=== PATIENT | female | born 1955 | race Caucasian/White ===

== ENCOUNTER 2018-06-05 05:05 | Emergency (ER) | payer MEDICARE, MEDICAID ==
[~2018-06-05] VITALS: Ht 170.2 cm; Wt 111.0 kg
[~2018-06-05 05:05] MED LIST: ALBU8.5H8 IH; ASPI-1265 PO; AZIT250T PO; FLO110IN IH; HYDR-569 PO; LEVO50TA67 PO; MECL12.584 PO; METF500T PO; NITR100C6 PO; PANT40TA39 PO; PHEN-873 PO; UBID100C16 PO; VAL5T PO; VALS1TAB37 PO
[2018-06-05 05:08] VITALS: BP 193/86
[2018-06-05] MEDS ORDERED: FLUT16SP2 BOTHNARES (05:17)
== END 2018-06-05 05:22 | disposition home or self-care (01) ==
LOC: ER 05:05
DX: J32.9 Chronic sinusitis, unspecified (principal); I49.9 Cardiac arrhythmia, unspecified; E78.00 Pure hypercholesterolemia, unspecified; I10 Essential (primary) hypertension; E11.9 Type 2 diabetes mellitus without complications; Z87.442 Personal history of urinary calculi; Z90.710 Acquired absence of both cervix and uterus; Z98.890 Other specified postprocedural states; Z56.0 Unemployment, unspecified; Z88.0 Allergy status to penicillin; Z88.2 Allergy status to sulfonamides; Z88.8 Allergy status to other drugs, medicaments and biological substances; Z79.82 Long term (current) use of aspirin; Z79.84 Long term (current) use of oral hypoglycemic drugs; Z79.899 Other long term (current) drug therapy
CPT/HCPCS: 99283

== ENCOUNTER 2019-02-10 21:04 | Observation (INO) | payer MEDICARE, MEDICAID ==
[~2019-02-10] VITALS: Ht 170.2 cm; Wt 121.0 kg
[~2019-02-10 21:04] MED LIST changes: +FLUT16SP2 BOTHNARES; +HYDR-4383 PO; -HYDR-569 PO; +PHEN-786 PO; -PHEN-873 PO
[2019-02-10] MEDS ORDERED: aspirin 81mg tab.chew PO ONE (21:30)
[2019-02-10] MEDS ORDERED: LOSA1TAB39 PO (21:59)
[2019-02-10] MEDS ORDERED: ROSU20TA2 PO (22:01)
[2019-02-10] MEDS ORDERED: LORA0.5T PO (22:01)
[2019-02-10] MEDS: nitroGLYCERIN 0.4mg SUBLingual tab SL PRN ×2 (22:06→22:17)
--- NOTE | 2019-02-10 22:17 | NUR ---
B NOW 53/78, AFTER 1 NITRO. PT REPORTS SHE DID TAKE HER BP MEDS TODAY. PT'S GIRLFRIEND , LUCÍA AT BEDSIDE (CELL [phone]) AND SHE IS HOPEFUL OF STAYING WITH PT TONIGHT. SHE IS APPROPRIATE AND POLITE AND SUPPORTIVE. PT IS IN GOOD SPIRITS AND IS AGREEABLE TO ADMISSION FOR CARDIAC WORKUP.
[2019-02-10 22:24] LABS: ALANINE AMINOTRANSFERASE 37 U/L (12-78); ALBUMIN 3.7 G/DL (3.4-5.0); ALKALINE PHOSPHATASE 97 IU/L (46-116); ANION GAP 14 (8-16); ASPARTATE AMINO TRANSFERASE 21 U/L (10-37); BILIRUBIN,TOTAL 0.3 MG/DL (0.1-1.0); BLOOD UREA NITROGEN 21 MG/DL (7-18); BUN/CREATININE RATIO 19.3 (6.6-38.0); CALCIUM 9.6 MG/DL (8.5-10.1); CHLORIDE 102 MMOL/L (99-107); CREATININE 1.09 MG/DL (0.40-0.90); GLUCOSE 339 MG/DL (70-104); MAGNESIUM 1.5 MG/DL (1.5-2.4); POTASSIUM 3.8 MMOL/L (3.5-5.1); SODIUM 139 MMOL/L (135-145); TOTAL CARBON DIOXIDE 23.1 MMOL/L (24-32); TOTAL PROTEIN 7.4 G/DL (6.4-8.2); eGFR 51 ML/MIN
[2019-02-10 22:26] LABS: BASOPHILS # (AUTO) 0.1 X10'3 (0-0.2); BASOPHILS % (AUTO) 1.1 % (0-1); EOSINOPHILS # (AUTO) 0.2 X10'3 (0-0.9); EOSINOPHILS % (AUTO) 3.8 % (0-6); HEMATOCRIT 37.1 % (35.0-45.0); HEMOGLOBIN 11.9 g/dl (12.0-16.0); LYMPHOCYTES # (AUTO) 1.5 X10'3 (1.1-4.8); LYMPHOCYTES % (AUTO) 22.6 % (21-51); MEAN CORPUSCULAR HEMOGLOBIN 26.9 PG (27.0-31.0); MEAN CORPUSCULAR HGB CONC 32.1 g/dL (33.0-36.5); MEAN CORPUSCULAR VOLUME 83.7 FL (78-98); MEAN PLATELET VOLUME 8.8 FL (7.4-10.4); MONOCYTES # (AUTO) 0.5 X10'3 (0-0.9); MONOCYTES % (AUTO) 8.3 % (2-12); NEUTROPHILS # (AUTO) 4.2 X10'3 (1.8-7.7); NEUTROPHILS % (AUTO) 64.2 % (42-75); PLATELET COUNT 228 X10'3 (140-440); RED BLOOD COUNT 4.43 X10'6 (4.20-5.60); RED CELL DISTRIBUTION WIDTH 14.5 % (11.5-14.5); WHITE BLOOD COUNT 6.5 X10'3 (4.5-11.0)
[2019-02-10 22:40] LABS: PARTIAL THROMBOPLASTIN TIME 26 SECONDS (22-32); PROTHROMBIN TIME 10.2 SECONDS (9.0-12.0)
[2019-02-10] MEDS ORDERED: HYDROcodone/acetaminophen 5mg/325mg tablet PO PRN (23:00)
[2019-02-10] MEDS ORDERED: morphine 4 MG/ML inj SYRINge IV PRN (23:00)
[2019-02-10] MEDS ORDERED: mag hydrox/Alum hydrox/simeth 30ml oral suspension PO PRN (23:00)
[2019-02-10] MEDS ORDERED: magnesium hydroxide 30ml (MOM) UD suspension PO PRN (23:00)
[2019-02-10] MEDS ORDERED: morphine 2 MG/ML inj. syringe IV PRN (23:00)
[2019-02-10] MEDS ORDERED: acetaminophen 325mg tablet PO PRN (23:00)
[2019-02-10] MEDS ORDERED: ondansetron/PF 4mg/2ml inj IV PRN (23:00)
[2019-02-10] MEDS ORDERED: LORazepam 0.5 MG tablet PO PRN (23:10)
--- NOTE | 2019-02-10 23:11 | NUR ---
ADMISSION ORDERS WRITTEN BY DR. GAYTAN. PT AWAITING IPA. MEDICAL LEVEL. CURRENT VSS.
--- NOTE | 2019-02-10 23:30 | NUR ---
IPA 354C. PT'S PARTNER, LUCÍA, HAS JUST STEPPED AWAY AND WILL RETURNE IN A WHILE. CURRENT VSS. PT REPORTS NO PAIN AND STATES "I FEEL GREAT.
[2019-02-10 23:40] LABS: HEMOGLOBIN A1C 8.6 % (4.5-6.2)
[2019-02-11] VITALS (9 sets, daily range): BP systolic 135–186; BP diastolic 47–88
--- NOTE | 2019-02-11 00:08 | NUR ---
Patient in room ED 2. I have received report from LEYLA Brady and had the opportunity to ask questions and assume patient care.Patient just arrived
[2019-02-11] MEDS: furosemide 10 MG/1 ML 10ml inj IV SCH ×2 (00:26→12:03)
[2019-02-11] MEDS ORDERED: nitroGLYCERIN 0.4mg SUBLingual tab SL PRN (01:50)
[2019-02-11] MEDS ORDERED: aminophylline 250mg/10ml inj. IV PRN (01:50)
[2019-02-11] MEDS ORDERED: metoprolol tartrate 1mg/ml inj IV PRN (01:50)
[2019-02-11] MEDS ORDERED: regadenoson 0.4mg/5ml syringe IV ONE ×2 (01:50→10:25)
[2019-02-11 04:36] LABS: BASOPHILS # (AUTO) 0.1 X10'3 (0-0.2); BASOPHILS % (AUTO) 1.5 % (0-1); EOSINOPHILS # (AUTO) 0.2 X10'3 (0-0.9); EOSINOPHILS % (AUTO) 3.6 % (0-6); HEMOGLOBIN 12.3 g/dl (12.0-16.0); LYMPHOCYTES # (AUTO) 2.1 X10'3 (1.1-4.8); LYMPHOCYTES % (AUTO) 31.2 % (21-51); MEAN CORPUSCULAR HEMOGLOBIN 26.7 PG (27.0-31.0); MEAN CORPUSCULAR HGB CONC 32.3 g/dL (33.0-36.5); MEAN CORPUSCULAR VOLUME 82.6 FL (78-98); MEAN PLATELET VOLUME 8.7 FL (7.4-10.4); MONOCYTES # (AUTO) 0.6 X10'3 (0-0.9); MONOCYTES % (AUTO) 8.4 % (2-12); NEUTROPHILS # (AUTO) 3.8 X10'3 (1.8-7.7); NEUTROPHILS % (AUTO) 55.3 % (42-75); PLATELET COUNT 234 X10'3 (140-440); RED CELL DISTRIBUTION WIDTH 14.3 % (11.5-14.5); WHITE BLOOD COUNT 6.8 X10'3 (4.5-11.0)
[2019-02-11 04:44] LABS: ALBUMIN 3.7 G/DL (3.4-5.0); ANION GAP 11 (8-16); BLOOD UREA NITROGEN 21 MG/DL (7-18); BUN/CREATININE RATIO 22.8 (6.6-38.0); CALCIUM 9.8 MG/DL (8.5-10.1); CHLORIDE 102 MMOL/L (99-107); CREATININE 0.92 MG/DL (0.40-0.90); GLUCOSE 187 MG/DL (70-104); POTASSIUM 3.3 MMOL/L (3.5-5.1); SODIUM 140 MMOL/L (135-145); TOTAL CARBON DIOXIDE 27.3 MMOL/L (24-32); eGFR 62 ML/MIN
[2019-02-11] MEDS ORDERED: potassium Cl 20 mEq SR tablet PO PRN ×2 (05:45)
[2019-02-11] MEDS ORDERED: magnesium 4gm in 100ml NS 100 ML IV PRN (05:45)
[2019-02-11] MEDS ORDERED: potassium Cl 40MEQ/NS 500ml 500 ML IV PRN ×2 (05:45)
[2019-02-11] MEDS ORDERED: magnesium 2GM in 50ml NS 50 ML IV PRN (05:45)
[2019-02-11] MEDS ORDERED: magnesium Cl slow-release 64mg tablet PO PRN (05:45)
--- NOTE | 2019-02-11 06:27 | NUR ---
Problems reprioritized. Patient report given, questions answered & plan of care reviewed with LEYLA PAULA.
[2019-02-11] MEDS ORDERED: levoTHYROXINE 75mcg tablet PO SCH (07:00)
[2019-02-11] MEDS ORDERED: metFORMIN 500mg tablet PO SCH (07:00)
[2019-02-11] MEDS ORDERED: non-formulary drug (Ubidecarenone (Coq-10) 300 MG) PO SCH (08:00)
[2019-02-11] MEDS ORDERED: fluticasone nasal spray 16GM bottle NS SCH (08:00)
[2019-02-11] MEDS ORDERED: pantoprazole 40mg Tablet.DR PO SCH (08:00)
[2019-02-11] MEDS ORDERED: losartan 50mg tablet PO SCH (08:00)
[2019-02-11] MEDS ORDERED: HYDROchlorothiazide 25mg tablet PO SCH (08:00)
[2019-02-11] MEDS ORDERED: atorvastatin 20mg tablet PO SCH (08:00)
[2019-02-11] MEDS ORDERED: enoxaparin 40mg/0.4ml syringe SUBCUT SCH (08:00)
[2019-02-11] MEDS ORDERED: non-formulary drug (Losartan/Hydrochlorothiazide (Losartan-Hctz 100-25 Mg Tab) 1 TAB) PO SCH (08:00)
[2019-02-11] MEDS ORDERED: aspirin 81mg tab.chew PO SCH (08:00)
[2019-02-11] MEDS ORDERED: aminophylline inj. 10 ML IV ONE (10:25)
== END 2019-02-11 15:45 | disposition home or self-care (01) ==
LOC: ER 21:05 → ED HOLD 23:00 → UNDOADMIN 23:00 → ED HOLD 23:00 → SUR 3N 23:59
PROVIDERS: ADMIT Internal Medicine; ATTEND Family Medicine
DX: R07.89 Other chest pain (principal); R00.2 Palpitations; G47.30 Sleep apnea, unspecified; E03.9 Hypothyroidism, unspecified; E78.5 Hyperlipidemia, unspecified; I10 Essential (primary) hypertension; E11.9 Type 2 diabetes mellitus without complications; E78.00 Pure hypercholesterolemia, unspecified; Z87.891 Personal history of nicotine dependence; Z87.442 Personal history of urinary calculi; Z87.11 Personal history of peptic ulcer disease; N39.0 Urinary tract infection, site not specified; F41.9 Anxiety disorder, unspecified; Z90.710 Acquired absence of both cervix and uterus; Z82.3 Family history of stroke; Z82.49 Family history of ischemic heart disease and other diseases of the circulatory system; Z96.659 Presence of unspecified artificial knee joint
CPT/HCPCS: 36415; 71045; 78452; 80048; 80053; 82948; 83036; 83735; 83880; 84484; 85025; 85610; 85730; 87070; 93005; 93017; 93306; 96372; 96374; 96376; 99284; A9500; G0378; J0280; J1940; J1650

== ENCOUNTER 2019-12-19 09:52 | Emergency (ER) | payer MEDICARE, MEDICAID ==
[~2019-12-19] VITALS: Ht 170.2 cm; Wt 120.5 kg
[~2019-12-19 09:52] MED LIST changes: -ALBU8.5H8 IH; -AZIT250T PO; +CLIN150C8 PO; -FLO110IN IH; -HYDR-4383 PO; +LORA0.5T PO; +LOSA1TAB39 PO; -MECL12.584 PO; +METO50TA17 PO; -NITR100C6 PO; -PHEN-786 PO; +ROSU20TA2 PO; -VAL5T PO; -VALS1TAB37 PO
[2019-12-19] MEDS ORDERED: oxymetazoline 15 ML nasal spray NS ONE (10:55)
[2019-12-19] MEDS ORDERED: normal saline 1000ML IV soln IVB ONE (10:55)
[2019-12-19] MEDS ORDERED: metoclopramide 5 mg/ml inj IV ONE (10:55)
[2019-12-19 11:08] LABS: BASOPHILS # (AUTO) 0.1 X10'3 (0-0.2); BASOPHILS % (AUTO) 1.3 % (0-1); EOSINOPHILS # (AUTO) 0.3 X10'3 (0-0.9); HEMATOCRIT 36.6 % (35.0-45.0); LYMPHOCYTES # (AUTO) 1.3 X10'3 (1.1-4.8); LYMPHOCYTES % (AUTO) 24.2 % (21-51); MEAN CORPUSCULAR HEMOGLOBIN 26.3 PG (27.0-31.0); MEAN CORPUSCULAR HGB CONC 32.8 g/dL (33.0-36.5); MEAN CORPUSCULAR VOLUME 80.3 FL (78-98); MEAN PLATELET VOLUME 8.7 FL (7.4-10.4); MONOCYTES # (AUTO) 0.3 X10'3 (0-0.9); NEUTROPHILS # (AUTO) 3.5 X10'3 (1.8-7.7); NEUTROPHILS % (AUTO) 63.5 % (42-75); PLATELET COUNT 228 X10'3 (140-440); RED BLOOD COUNT 4.56 X10'6 (4.20-5.60); RED CELL DISTRIBUTION WIDTH 13.8 % (11.5-14.5); WHITE BLOOD COUNT 5.6 X10'3 (4.5-11.0)
[2019-12-19 11:16] LABS: ALANINE AMINOTRANSFERASE 44 U/L (12-78); ALBUMIN 3.6 G/DL (3.4-5.0); ALBUMIN/GLOBULIN RATIO 0.9 (1.1-1.5); ALKALINE PHOSPHATASE 101 IU/L (46-116); AMYLASE 36 U/L (25-115); ANION GAP 10 (8-16); ASPARTATE AMINO TRANSFERASE 30 U/L (10-37); BILIRUBIN,TOTAL 0.4 MG/DL (0.1-1.0); BLOOD UREA NITROGEN 17 MG/DL (7-18); BUN/CREATININE RATIO 20.5 (6.6-38.0); CALCIUM 8.9 MG/DL (8.5-10.1); CHLORIDE 101 MMOL/L (99-107); CREATININE 0.83 MG/DL (0.40-0.90); GLUCOSE 217 MG/DL (70-104); LIPASE 264 U/L (73-393); POTASSIUM 3.7 MMOL/L (3.5-5.1); SODIUM 138 MMOL/L (135-145); TOTAL CARBON DIOXIDE 26.9 MMOL/L (24-32); TOTAL PROTEIN 7.5 G/DL (6.4-8.2); eGFR 69 ML/MIN
[2019-12-19 12:22] LABS: CLARITY,URINE CLEAR (Clear); COLOR,URINE STRAW (Yellow); GLUCOSE, URINE NEGATIVE (Neg); KETONES,URINE TRACE mg/dl (Neg); LEUKOCYTE ESTERASE ,URINE NEGATIVE (Neg); NITRITES, URINE NEGATIVE (Neg); OCCULT BLOOD,URINE NEGATIVE (Neg); PROTEIN,URINE 100 mg/dl (Neg); UROBILINOGEN,URINE 0.2 E.U/dL (0.2-1.0)
[2019-12-19 12:23] LABS: UA COLLECTION TYPE CLN CATCH MIDSTREAM
[2019-12-19 12:27] LABS: RBC,URINE NONE SEEN /HPF (0-2); WBC,URINE 0-4 /HPF (0-4)
[2019-12-19 12:28] LABS: BACTERIA,URINE 1+ /HPF (Neg); COARSE GRANULAR CAST 0-3 /LPF (NEGATIVE); HYALINE CASTS 0-3 /LPF (NEGATIVE); MUCUS STRANDS FEW /LPF (Neg); SQUAMOUS EPITHELIAL CELL,UR MANY /LPF (FEW)
[2019-12-19 14:30] VITALS: BP 164/75
[2019-12-19] MEDS ORDERED: ONDA4TAB6 PO (14:42)
== END 2019-12-19 15:04 | disposition home or self-care (01) ==
LOC: ER 09:53
DX: E87.2 Acidosis (principal); R19.7 Diarrhea, unspecified; R05 Cough; E78.00 Pure hypercholesterolemia, unspecified; I10 Essential (primary) hypertension; E11.9 Type 2 diabetes mellitus without complications; Z87.442 Personal history of urinary calculi; F41.9 Anxiety disorder, unspecified; Z90.710 Acquired absence of both cervix and uterus; Z98.890 Other specified postprocedural states; Z56.0 Unemployment, unspecified; Z88.0 Allergy status to penicillin; Z88.1 Allergy status to other antibiotic agents; Z88.2 Allergy status to sulfonamides; Z79.82 Long term (current) use of aspirin; Z79.84 Long term (current) use of oral hypoglycemic drugs; Z79.899 Other long term (current) drug therapy
CPT/HCPCS: 36415; 71046; 80053; 81001; 82150; 83605; 83690; 84484; 85025; 93005; 96361; 96374; 99284; J2765; J7030

== ENCOUNTER 2021-05-01 00:55 | Observation (INO) | payer MEDICARE, MEDICAID ==
[2021-05-01] VITALS (11 sets, daily range): BP systolic 153–191; BP diastolic 64–82
[~2021-05-01] VITALS: Ht 170.2 cm; Wt 120.5 kg
[~2021-05-01 00:55] MED LIST changes: +ONDA4TAB6 PO
[2021-05-01 01:54] LABS: BASOPHILS # (AUTO) 0.1 X10'3 (0-0.2); BASOPHILS % (AUTO) 1.1 % (0-1); EOSINOPHILS # (AUTO) 0.1 X10'3 (0-0.9); EOSINOPHILS % (AUTO) 2.9 % (0-6); HEMATOCRIT 45.2 % (35.0-45.0); HEMOGLOBIN 15.1 g/dl (12.0-16.0); LYMPHOCYTES # (AUTO) 1.6 X10'3 (1.1-4.8); LYMPHOCYTES % (AUTO) 32.3 % (21-51); MEAN CORPUSCULAR HGB CONC 33.5 g/dL (33.0-36.5); MEAN CORPUSCULAR VOLUME 86.6 FL (78-98); MEAN PLATELET VOLUME 8.8 FL (7.4-10.4); MONOCYTES # (AUTO) 0.4 X10'3 (0-0.9); MONOCYTES % (AUTO) 8.1 % (2-12); NEUTROPHILS # (AUTO) 2.8 X10'3 (1.8-7.7); NEUTROPHILS % (AUTO) 55.6 % (42-75); PLATELET COUNT 178 X10'3 (140-440); RED BLOOD COUNT 5.21 X10'6 (4.20-5.60)
[2021-05-01 02:04] LABS: ALANINE AMINOTRANSFERASE 25 U/L (12-78); ALBUMIN 3.6 G/DL (3.4-5.0); ALBUMIN/GLOBULIN RATIO 0.9 (1.1-1.5); ALKALINE PHOSPHATASE 102 IU/L (46-116); ANION GAP 11 (8-16); ASPARTATE AMINO TRANSFERASE 17 U/L (10-37); BILIRUBIN,TOTAL 0.7 MG/DL (0.1-1.0); BLOOD UREA NITROGEN 23 MG/DL (7-18); BUN/CREATININE RATIO 26.1 (6.6-38.0); CALCIUM 8.6 MG/DL (8.5-10.1); CHLORIDE 102 MMOL/L (99-107); CREATININE 0.88 MG/DL (0.40-0.90); GLUCOSE 272 MG/DL (70-104); POTASSIUM 3.1 MMOL/L (3.5-5.1); SODIUM 139 MMOL/L (135-145); TOTAL CARBON DIOXIDE 26.4 MMOL/L (24-32); TOTAL PROTEIN 7.4 G/DL (6.4-8.2); eGFR 64 ML/MIN
[2021-05-01 02:11] LABS: MAGNESIUM 1.6 MG/DL (1.5-2.4)
[2021-05-01] MEDS ORDERED: potassium Cl 20 mEq SR tablet PO STA (02:11)
[2021-05-01] MEDS ORDERED: normal saline 1000ml 1,000 ML IV ONE (02:15)
[2021-05-01] MEDS ORDERED: labetalol 20mg/4ml (5mg/ml) syringe IV ONE (02:45)
[2021-05-01] MEDS ORDERED: magnesium hydroxide 30ml (MOM) UD suspension PO PRN (02:55)
[2021-05-01] MEDS ORDERED: dextrose 50%-water 50ml dispensing syringe IV PRN ×2 (02:55)
[2021-05-01] MEDS ORDERED: nitroGLYCERIN 0.4mg SUBLingual tab SL PRN ×2 (02:55→03:45)
[2021-05-01] MEDS ORDERED: HYDROcodone/acetaminophen 5mg/325mg tablet PO PRN (02:55)
[2021-05-01] MEDS ORDERED: glucagon, human recombinant 1mg kit SUBCUT PRN (02:55)
[2021-05-01] MEDS ORDERED: acetaminophen 325mg tablet PO PRN ×2 (02:55)
[2021-05-01] MEDS ORDERED: HYDROcodone/acetaminophen 10/325mg tab PO PRN (02:55)
[2021-05-01] MEDS ORDERED: dextrose ORAL solution 15 GM/59 ML bottle PO PRN ×2 (02:55)
[2021-05-01] MEDS ORDERED: mag hydrox/Alum hydrox/simeth 30ml oral suspension PO PRN (02:55)
[2021-05-01] MEDS ORDERED: ondansetron/PF 4mg/2ml inj IV PRN (02:55)
[2021-05-01] MEDS ORDERED: MESSAGE TO PHARMACY PO ONE (02:55)
[2021-05-01] MEDS ORDERED: morphine 2 MG/ML inj. syringe IV PRN ×2 (02:55)
[2021-05-01] MEDS ORDERED: metoprolol tartrate 1mg/ml inj IV PRN (03:45)
[2021-05-01] MEDS ORDERED: aminophylline 250mg/10ml inj. IV PRN (03:45)
[2021-05-01] MEDS ORDERED: regadenoson 0.4mg/5ml syringe IV PRN (03:45)
[2021-05-01] MEDS ORDERED: SITA100T15 PO (03:46)
[2021-05-01] MEDS ORDERED: METO-384 PO (04:16)
[2021-05-01] MEDS: furosemide 20 MG/2 ML vial IV SCH ×2 (04:56→08:18)
--- NOTE | 2021-05-01 06:00 | NUR ---
Patient in room PCU 3018. I have received report from Alejandro MAEYR and had the opportunity to ask questions and assume patient care.
[2021-05-01] MEDS ORDERED: aspirin 81mg tablet.DR PO SCH (08:00)
[2021-05-01 08:38] LABS: D-DIMER 0.39 MG/L FEU (0-0.50)
--- NOTE | 2021-05-01 08:42 | NUR ---
PAGER ID: [phone] MESSAGE: patient Tracey Rule Room 3018B has a K level of 3.1. Can you please order the replacement protocol? Thanks Lauryn MAYER ext [phone]
[2021-05-01] MEDS: insulin Lispro (HumaLOG) vial - multi-dose SQ SCH ×2 (08:54→14:20)
[2021-05-01] MEDS ORDERED: magnesium 4gm in 100ml NS 100 ML IV PRN (09:25)
[2021-05-01] MEDS ORDERED: potassium Cl 40MEQ/1/2NS 520ml 520 ML IV PRN (09:25)
[2021-05-01] MEDS ORDERED: potassium Cl 20 mEq SR tablet PO PRN ×2 (09:25)
[2021-05-01] MEDS ORDERED: LORazepam 0.5 MG tablet PO PRN (09:25)
[2021-05-01] MEDS ORDERED: magnesium Cl slow-release 64mg tablet PO PRN (09:25)
[2021-05-01 11:02] LABS: MAGNESIUM 1.6 MG/DL (1.5-2.4)
--- NOTE | 2021-05-01 12:18 | NUR ---
Pt with T2DM, current A1c is 8.9% seen at bedside provided with written and verbal DM education. Pt reports A1c previously 10.5% about six months ago however got it down to 8.5% a few months ago and attributes recent increase in A1c to increased stress and PO intake of higher carbohydrate foods. Pt states she recently started seeing a new physician, previously saw a physician every other month. Pt states she previously was on Metformin and Januvia however was taken off of Metformin by MD and currently just takes Januvia per rx. Pt states she previously was checking BG levels with resulting numbers 160-179 mg/dL however hasn't been checking them as frequently lately. All of patient's questions were answered at this time. RD contact information provided. Pt currently NPO though endorsing a good appetite. Noted food allergy to walnuts in EMR. Pt states walnuts and bananas cause her to have an itchy mouth but she still consumes them anyway. Pt denies difficulty chewing/swallowing. LBM today was small per pt. Encouraged pt to d/w RN medical interventions for constipation. Will continue to follow. Addendum: 05/01/21 at [address] Amended: Links added.
--- NOTE | 2021-05-01 13:38 | NUR ---
PAGER ID: [phone] MESSAGE: [email or web address] ON [email or web address], THE [facility] REPORT IS AVAILABLE ON [id number], THANK YOU.
[2021-05-01] MEDS ORDERED: PANT-47 PO (13:44)
--- NOTE | 2021-05-01 16:34 | NUR ---
pt stable for discharge per md. tele and PIV dc'd cannula intact. discharge and medication regimen understood. patient taken to lobby via wheelchair for transport in family vehicle.
--- NOTE | 2021-05-01 16:35 | NUR ---
Problems reprioritized. Patient report given, questions answered & plan of care reviewed with Orien.
[2021-05-01] MEDS ORDERED: metFORMIN 500mg tablet PO SCH (17:00)
[2021-05-01] MEDS ORDERED: K and/or MAG REPLACEMENT MC SCH (20:00)
[2021-05-01] MEDS ORDERED: insulin glargine (Lantus) pen - multi-dose SQ SCH (21:00)
[2021-05-02] MEDS ORDERED: non-formulary drug (Ubidecarenone (Coq-10) 300 MG) PO SCH (08:00)
[2021-05-02] MEDS ORDERED: levoTHYROXINE 25mcg tablet PO SCH (08:00)
[2021-05-02] MEDS ORDERED: linagliptin 5mg tablet PO SCH (08:00)
[2021-05-02] MEDS ORDERED: HYDROchlorothiazide 25mg tablet PO SCH (08:00)
[2021-05-02] MEDS ORDERED: aspirin 81mg tab.chew PO SCH (08:00)
[2021-05-02] MEDS ORDERED: pantoprazole 40mg Tablet.DR PO SCH (08:00)
[2021-05-02] MEDS ORDERED: atorvastatin 20mg tablet PO SCH (08:00)
[2021-05-02] MEDS ORDERED: losartan 50mg tablet PO SCH (08:00)
== END 2021-05-01 16:25 | disposition home or self-care (01) ==
LOC: ER 00:55 → ED HOLD 02:51 → PCU 3S 03:55
PROVIDERS: ADMIT Internal Medicine; ATTEND Internal Medicine
DX: R07.89 Other chest pain (principal); R00.2 Palpitations; I11.0 Hypertensive heart disease with heart failure; I50.9 Heart failure, unspecified; E11.9 Type 2 diabetes mellitus without complications; E78.5 Hyperlipidemia, unspecified; E03.9 Hypothyroidism, unspecified; K21.9 Gastro-esophageal reflux disease without esophagitis; E78.00 Pure hypercholesterolemia, unspecified; E66.01 Morbid (severe) obesity due to excess calories; F41.9 Anxiety disorder, unspecified; J44.9 Chronic obstructive pulmonary disease, unspecified; Z87.11 Personal history of peptic ulcer disease; Z87.442 Personal history of urinary calculi; Z90.710 Acquired absence of both cervix and uterus; Z96.659 Presence of unspecified artificial knee joint; Z79.82 Long term (current) use of aspirin; Z79.84 Long term (current) use of oral hypoglycemic drugs; Z79.899 Other long term (current) drug therapy; Z88.0 Allergy status to penicillin; Z88.2 Allergy status to sulfonamides; Z88.3 Allergy status to other anti-infective agents; Z88.1 Allergy status to other antibiotic agents; Z68.41 Body mass index [BMI] 40.0-44.9, adult
CPT/HCPCS: 36415; 71045; 78452; 80053; 82948; 83036; 83735; 83880; 84443; 84484; 85025; 85379; 87081; 93005; 93017; 96361; 96374; 96375; 96376; 99285; A9500; G0378; J1815; J1940; J2785; J7030; J3490

== ENCOUNTER 2022-01-03 18:14 | Emergency (ER) | payer MEDICARE, MEDICAID ==
[~2022-01-03] VITALS: Ht 170.2 cm; Wt 114.5 kg
[~2022-01-03 18:14] MED LIST changes: -CLIN150C8 PO; -FLUT16SP2 BOTHNARES; -LEVO50TA67 PO; -METF500T PO; +METO-384 PO; -METO50TA17 PO; -ONDA4TAB6 PO; +PANT-47 PO; +SITA100T15 PO
[2022-01-03 19:56] LABS: BASOPHILS % (AUTO) 0.5 % (0-1); EOSINOPHILS # (AUTO) 0.1 X10'3 (0-0.9); EOSINOPHILS % (AUTO) 1.1 % (0-6); HEMATOCRIT 48.4 % (35.0-45.0); HEMOGLOBIN 16.5 g/dl (12.0-16.0); LYMPHOCYTES # (AUTO) 0.5 X10'3 (1.1-4.8); LYMPHOCYTES % (AUTO) 5.5 % (21-51); MEAN CORPUSCULAR HEMOGLOBIN 30.4 PG (27.0-31.0); MEAN CORPUSCULAR HGB CONC 34.1 g/dL (33.0-36.5); MEAN CORPUSCULAR VOLUME 89.1 FL (78-98); MEAN PLATELET VOLUME 8.5 FL (7.4-10.4); MONOCYTES # (AUTO) 0.6 X10'3 (0-0.9); MONOCYTES % (AUTO) 6.4 % (2-12); NEUTROPHILS # (AUTO) 7.6 X10'3 (1.8-7.7); NEUTROPHILS % (AUTO) 86.5 % (42-75); PLATELET COUNT 184 X10'3 (140-440); RED BLOOD COUNT 5.44 X10'6 (4.20-5.60); RED CELL DISTRIBUTION WIDTH 13.8 % (11.5-14.5); WHITE BLOOD COUNT 8.8 X10'3 (4.5-11.0)
[2022-01-03 20:22] LABS: ALANINE AMINOTRANSFERASE 41 U/L (12-78); ALBUMIN/GLOBULIN RATIO 1.1 (1.1-1.5); ALKALINE PHOSPHATASE 68 IU/L (46-116); ANION GAP 13 (8-16); ASPARTATE AMINO TRANSFERASE 20 U/L (10-37); BILIRUBIN,TOTAL 1.4 MG/DL (0.1-1.0); BLOOD UREA NITROGEN 14 MG/DL (7-18); BUN/CREATININE RATIO 17.3 (6.6-38.0); CALCIUM 9.6 MG/DL (8.5-10.1); CHLORIDE 102 MMOL/L (99-107); CREATININE 0.81 MG/DL (0.40-0.90); GLUCOSE 167 MG/DL (70-104); LIPASE 93 U/L (73-393); POTASSIUM 3.4 MMOL/L (3.5-5.1); SODIUM 140 MMOL/L (135-145); TOTAL CARBON DIOXIDE 25.5 MMOL/L (24-32); TOTAL PROTEIN 7.7 G/DL (6.4-8.2); eGFR 71 ML/MIN
[2022-01-03] MEDS ORDERED: ondansetron 4mg rapidly disintigrating tab PO ONE (21:50)
--- NOTE | 2022-01-03 22:05 | NUR ---
PT ROOMED IN BED 3. ASSUMED CARE OF PT.
[2022-01-03 22:45] LABS: CLARITY,URINE SLIGHTLY CLOUDY (Clear); COLOR,URINE YELLOW (Yellow); GLUCOSE, URINE NEGATIVE (Neg); KETONES,URINE NEGATIVE (Neg); LEUKOCYTE ESTERASE ,URINE NEGATIVE (Neg); NITRITES, URINE NEGATIVE (Neg); OCCULT BLOOD,URINE TRACE-INTACT (Neg); PH,URINE 5.5 (4.8-8.0); PROTEIN,URINE 100 mg/dl (Neg); UROBILINOGEN,URINE 0.2 E.U/dL (0.2-1.0)
[2022-01-03 22:52] LABS: UA COLLECTION TYPE CLN CATCH MIDSTREAM
[2022-01-03 22:53] LABS: MUCUS STRANDS MANY /LPF (Neg); SQUAMOUS EPITHELIAL CELL,UR MODERATE /LPF (FEW)
[2022-01-03 22:54] LABS: BACTERIA,URINE FEW /HPF (Neg); RBC,URINE 0-2 /HPF (0-2); WBC,URINE 0-4 /HPF (0-4)
[2022-01-03] MEDS ORDERED: iohexol 350MG/ML 100ml bottle IV ONE (23:13)
[2022-01-04] MEDS ORDERED: ONDA4TAB12 PO (01:08)
[2022-01-04] MEDS ORDERED: ondansetron 4mg rapidly disintigrating tab PO ONE (02:20)
[2022-01-04 02:27] VITALS: BP 128/69
== END 2022-01-04 02:30 | disposition home or self-care (01) ==
LOC: ER 18:15
DX: R10.84 Generalized abdominal pain (principal); Z20.822 Contact with and (suspected) exposure to COVID-19; R22.9 Localized swelling, mass and lump, unspecified; R11.2 Nausea with vomiting, unspecified; R50.9 Fever, unspecified; E78.00 Pure hypercholesterolemia, unspecified; I10 Essential (primary) hypertension; E11.9 Type 2 diabetes mellitus without complications; F41.9 Anxiety disorder, unspecified; Z87.11 Personal history of peptic ulcer disease; Z87.442 Personal history of urinary calculi; Z87.440 Personal history of urinary (tract) infections; Z90.710 Acquired absence of both cervix and uterus; Z98.890 Other specified postprocedural states; Z56.0 Unemployment, unspecified; Z88.0 Allergy status to penicillin; Z88.1 Allergy status to other antibiotic agents; Z88.2 Allergy status to sulfonamides; Z88.8 Allergy status to other drugs, medicaments and biological substances; Z79.82 Long term (current) use of aspirin; Z79.899 Other long term (current) drug therapy
CPT/HCPCS: 36415; 71045; 74174; 74176; 80053; 81001; 83605; 83690; 84145; 84484; 85025; 87635; 93005; 99285; C9803; Q9967

== ENCOUNTER 2022-06-28 09:37 | Emergency (ER) | payer MEDICARE, MEDICAID ==
[~2022-06-28] VITALS: Ht 172.7 cm; Wt 110.0 kg
[~2022-06-28 09:37] MED LIST changes: +ONDA4TAB12 PO
[2022-06-28 11:58] LABS: ALANINE AMINOTRANSFERASE 32 U/L (12-78); ALBUMIN 3.9 G/DL (3.4-5.0); ALKALINE PHOSPHATASE 78 IU/L (46-116); ANION GAP 9 (8-16); ASPARTATE AMINO TRANSFERASE 22 U/L (10-37); BILIRUBIN,TOTAL 0.8 MG/DL (0.1-1.0); BLOOD UREA NITROGEN 16 MG/DL (7-18); BUN/CREATININE RATIO 18.8 (6.6-38.0); CALCIUM 9.4 MG/DL (8.5-10.1); CHLORIDE 103 MMOL/L (99-107); CREATININE 0.85 MG/DL (0.40-0.90); GLUCOSE 137 MG/DL (70-104); POTASSIUM 3.1 MMOL/L (3.5-5.1); SODIUM 140 MMOL/L (135-145); TOTAL CARBON DIOXIDE 28.1 MMOL/L (24-32); TOTAL PROTEIN 7.9 G/DL (6.4-8.2); eGFR 67 ML/MIN
[2022-06-28] MEDS ORDERED: potassium Cl 20 mEq SR tablet PO STA (12:13)
[2022-06-28 12:46] VITALS: BP 171/91
== END 2022-06-28 12:48 | disposition home or self-care (01) ==
LOC: ER 09:38
DX: R42 Dizziness and giddiness (principal); E11.65 Type 2 diabetes mellitus with hyperglycemia; I11.9 Hypertensive heart disease without heart failure; E06.9 Thyroiditis, unspecified; Z87.442 Personal history of urinary calculi; Z88.0 Allergy status to penicillin; Z88.1 Allergy status to other antibiotic agents; Z88.2 Allergy status to sulfonamides; Z79.899 Other long term (current) drug therapy; Z79.82 Long term (current) use of aspirin
CPT/HCPCS: 36415; 80053; 82948; 84484; 93005; 99284

== ENCOUNTER 2022-11-22 06:31 | Emergency (ER) | payer MEDICARE, MEDICAID ==
[~2022-11-22] VITALS: Ht 170.2 cm; Wt 119.0 kg
[2022-11-22 06:50] VITALS: BP 208/78
[2022-11-22] MEDS ORDERED: dexamethasone sod phosphate 10mg/ml inj IM STA (09:09)
[2022-11-22] MEDS ORDERED: HYDR-3965 PO (09:30)
[2022-11-22] MEDS ORDERED: IBUP-1986 PO (10:10)
== END 2022-11-22 10:02 | disposition home or self-care (01) ==
LOC: ER 06:31
DX: M54.59 Other low back pain (principal); E78.00 Pure hypercholesterolemia, unspecified; I10 Essential (primary) hypertension; E11.9 Type 2 diabetes mellitus without complications; Z87.442 Personal history of urinary calculi; E03.9 Hypothyroidism, unspecified; Z88.0 Allergy status to penicillin; Z88.1 Allergy status to other antibiotic agents; Z79.899 Other long term (current) drug therapy; Z88.2 Allergy status to sulfonamides
CPT/HCPCS: 96372; 99283; J1100

== ENCOUNTER 2023-03-08 09:45 | Emergency (ER) | payer MEDICARE, MEDICAID ==
[~2023-03-08] VITALS: Ht 167.6 cm; Wt 116.2 kg
[~2023-03-08 09:45] MED LIST changes: +IBUP-1986 PO
[2023-03-08 09:49] VITALS: BP 181/80
[2023-03-08] MEDS ORDERED: LIDOcaine 1% W/epiNEPHrine 1:200,000 10ml vial IJ ONE (10:10)
[2023-03-08] MEDS ORDERED: LIDOCAINE 2%/EPI 1:100,000 inj. Multi-dose 20 ML VIAL IJ ONE ×2 (10:38→10:40)
== END 2023-03-08 10:47 | disposition home or self-care (01) ==
LOC: ER 09:46
DX: L02.31 Cutaneous abscess of buttock (principal); E78.00 Pure hypercholesterolemia, unspecified; I10 Essential (primary) hypertension; E11.9 Type 2 diabetes mellitus without complications; F41.9 Anxiety disorder, unspecified; E03.9 Hypothyroidism, unspecified; Z59.00 Homelessness unspecified; Z90.49 Acquired absence of other specified parts of digestive tract; Z88.0 Allergy status to penicillin; Z88.1 Allergy status to other antibiotic agents; Z88.2 Allergy status to sulfonamides; Z79.899 Other long term (current) drug therapy; Z98.2 Presence of cerebrospinal fluid drainage device; Z79.82 Long term (current) use of aspirin
CPT/HCPCS: 10060; 99282; A6449

== ENCOUNTER 2023-03-22 04:53 | Emergency (ER) | payer MEDICARE, MEDICAID ==
[~2023-03-22] VITALS: Ht 167.6 cm; Wt 118.2 kg
[2023-03-22 04:54] VITALS: BP 205/91
== END 2023-03-22 06:06 | disposition home or self-care (01) ==
LOC: ER 04:54
DX: Z88.0 Allergy status to penicillin (principal); I10 Essential (primary) hypertension; E78.00 Pure hypercholesterolemia, unspecified; E11.9 Type 2 diabetes mellitus without complications; Z88.1 Allergy status to other antibiotic agents; Z88.2 Allergy status to sulfonamides; Z87.891 Personal history of nicotine dependence; Z56.0 Unemployment, unspecified
CPT/HCPCS: 93005; 99283

== ENCOUNTER 2023-03-22 06:18 | Emergency (ER) | payer MEDICARE, MEDICAID ==
[~2023-03-22] VITALS: Ht 167.6 cm; Wt 111.0 kg
[2023-03-22 06:34] VITALS: BP 217/92
== END 2023-03-22 06:55 | disposition home or self-care (01) ==
LOC: ER 06:19
DX: R00.2 Palpitations (principal); E03.9 Hypothyroidism, unspecified; E11.9 Type 2 diabetes mellitus without complications; I10 Essential (primary) hypertension; E78.00 Pure hypercholesterolemia, unspecified; Z90.49 Acquired absence of other specified parts of digestive tract; Z88.0 Allergy status to penicillin; Z88.1 Allergy status to other antibiotic agents; Z88.2 Allergy status to sulfonamides; Z88.8 Allergy status to other drugs, medicaments and biological substances; Z79.899 Other long term (current) drug therapy; Z79.1 Long term (current) use of non-steroidal anti-inflammatories (NSAID); Z79.2 Long term (current) use of antibiotics; Z87.442 Personal history of urinary calculi; Z90.710 Acquired absence of both cervix and uterus
CPT/HCPCS: 93005; 99283; 99284

== ENCOUNTER 2023-07-08 09:48 | Emergency (ER) | payer MEDICARE, MEDICAID ==
[~2023-07-08] VITALS: Ht 167.6 cm; Wt 118.2 kg
[2023-07-08 10:28] VITALS: PULSE 58; TEMP 98
[2023-07-08 10:43] LABS: BASOPHILS # (AUTO) 0.1 X10'3 (0-0.2); BASOPHILS % (AUTO) 0.9 % (0-1); EOSINOPHILS # (AUTO) 0.2 X10'3 (0-0.9); EOSINOPHILS % (AUTO) 3.9 % (0-6); HEMATOCRIT 47.2 % (35.0-45.0); HEMOGLOBIN 15.6 g/dl (12.0-16.0); LYMPHOCYTES # (AUTO) 1.4 X10'3 (1.1-4.8); LYMPHOCYTES % (AUTO) 25.1 % (21-51); MEAN CORPUSCULAR HEMOGLOBIN 30.2 PG (27.0-31.0); MEAN CORPUSCULAR VOLUME 91.4 FL (78-98); MEAN PLATELET VOLUME 8.4 FL (7.4-10.4); MONOCYTES # (AUTO) 0.5 X10'3 (0-0.9); MONOCYTES % (AUTO) 8.4 % (2-12); NEUTROPHILS # (AUTO) 3.3 X10'3 (1.8-7.7); NEUTROPHILS % (AUTO) 61.7 % (42-75); PLATELET COUNT 179 X10'3 (140-440); RED BLOOD COUNT 5.16 X10'6 (4.20-5.60); RED CELL DISTRIBUTION WIDTH 15.2 % (11.5-14.5); WHITE BLOOD COUNT 5.4 X10'3 (4.5-11.0)
[2023-07-08 11:00] LABS: ALANINE AMINOTRANSFERASE 35 U/L (12-78); ALBUMIN 3.9 G/DL (3.4-5.0); ALBUMIN/GLOBULIN RATIO 1.1 (1.1-1.5); ALKALINE PHOSPHATASE 66 IU/L (46-116); ANION GAP 7 (8-16); ASPARTATE AMINO TRANSFERASE 21 U/L (10-37); BILIRUBIN,TOTAL 0.8 MG/DL (0.1-1.0); BLOOD UREA NITROGEN 17 MG/DL (7-18); BUN/CREATININE RATIO 20.5 (10.0-20.0); CALCIUM 9.3 MG/DL (8.5-10.1); CHLORIDE 103 MMOL/L (99-107); CREATININE 0.83 MG/DL (0.40-0.90); GLUCOSE 176 MG/DL (70-104); POTASSIUM 3.6 MMOL/L (3.5-5.1); SODIUM 137 MMOL/L (135-145); TOTAL PROTEIN 7.4 G/DL (6.4-8.2); eGFR 68 ML/MIN
[2023-07-08 12:02] VITALS: BP 148/88; RESP 18; O2SAT 93
== END 2023-07-08 12:53 | disposition home or self-care (01) ==
LOC: ER 09:49
DX: R00.2 Palpitations (principal); I10 Essential (primary) hypertension; E78.00 Pure hypercholesterolemia, unspecified; E11.9 Type 2 diabetes mellitus without complications; F41.9 Anxiety disorder, unspecified; E03.9 Hypothyroidism, unspecified; Z90.49 Acquired absence of other specified parts of digestive tract; Z88.0 Allergy status to penicillin; Z88.1 Allergy status to other antibiotic agents; Z88.2 Allergy status to sulfonamides; Z79.899 Other long term (current) drug therapy
CPT/HCPCS: 36415; 71045; 80053; 83880; 84484; 85025; 93005; 99285

== ENCOUNTER 2023-10-18 10:23 | Emergency (ER) | payer MEDICARE, MEDICAID ==
[~2023-10-18] VITALS: Ht 167.6 cm; Wt 121.2 kg
[2023-10-18] MEDS ORDERED: METH-797 PO (11:20)
[2023-10-18 12:53] VITALS: BP 182/70; PULSE 87; RESP 18; TEMP 98.6; O2SAT 99
== END 2023-10-18 12:54 | disposition home or self-care (01) ==
LOC: ER 10:23
DX: M54.59 Other low back pain (principal); E78.00 Pure hypercholesterolemia, unspecified; I10 Essential (primary) hypertension; E11.9 Type 2 diabetes mellitus without complications; E07.9 Disorder of thyroid, unspecified; F41.9 Anxiety disorder, unspecified; Z88.0 Allergy status to penicillin; Z88.1 Allergy status to other antibiotic agents; Z79.899 Other long term (current) drug therapy; Z88.8 Allergy status to other drugs, medicaments and biological substances
CPT/HCPCS: 99283

== ENCOUNTER 2023-11-01 16:52 | Emergency (ER) | payer MEDICARE, MEDICAID ==
[~2023-11-01] VITALS: Ht 170.2 cm; Wt 119.7 kg
[~2023-11-01 16:52] MED LIST changes: +METH-797 PO
[2023-11-01 17:47] VITALS: PULSE 82
[2023-11-01] MEDS ORDERED: CLIN-97 PO (21:39)
[2023-11-01 22:36] LABS: ALANINE AMINOTRANSFERASE 32 U/L (12-78); ALBUMIN 4.2 G/DL (3.4-5.0); ALBUMIN/GLOBULIN RATIO 1.1 (1.1-1.5); ALKALINE PHOSPHATASE 76 IU/L (46-116); ASPARTATE AMINO TRANSFERASE 23 U/L (10-37); BILIRUBIN,TOTAL 0.8 MG/DL (0.1-1.0); BLOOD UREA NITROGEN 21 MG/DL (7-18); BUN/CREATININE RATIO 22.3 (10.0-20.0); CALCIUM 9.8 MG/DL (8.5-10.1); CHLORIDE 101 MMOL/L (99-107); CREATININE 0.94 MG/DL (0.40-0.90); GLUCOSE 132 MG/DL (70-104); POTASSIUM 3.4 MMOL/L (3.5-5.1); eCRCL 56 ML/MIN; eGFR 59 ML/MIN
[2023-11-01 22:37] LABS: ANION GAP 9 (8-16); SODIUM 140 MMOL/L (135-145)
[2023-11-01 22:40] LABS: BASOPHILS # (AUTO) 0.1 X10'3 (0-0.2); BASOPHILS % (AUTO) 0.7 % (0-1); EOSINOPHILS # (AUTO) 0.2 X10'3 (0-0.9); EOSINOPHILS % (AUTO) 2.1 % (0-6); HEMOGLOBIN 15.6 g/dl (12.0-16.0); LYMPHOCYTES % (AUTO) 27.1 % (21-51); MEAN CORPUSCULAR HEMOGLOBIN 31.1 PG (27.0-31.0); MEAN CORPUSCULAR VOLUME 91.3 FL (78-98); MEAN PLATELET VOLUME 8.7 FL (7.4-10.4); MONOCYTES # (AUTO) 0.8 X10'3 (0-0.9); MONOCYTES % (AUTO) 10.4 % (2-12); NEUTROPHILS # (AUTO) 4.5 X10'3 (1.8-7.7); NEUTROPHILS % (AUTO) 59.7 % (42-75); PLATELET COUNT 191 X10'3 (140-440); RED BLOOD COUNT 5.04 X10'6 (4.20-5.60); WHITE BLOOD COUNT 7.5 X10'3 (4.5-11.0)
[2023-11-01] MEDS ORDERED: clindamycin 600mg/D5W 50ml 50 ML IV SCH (22:43)
[2023-11-01 23:36] VITALS: BP 134/85; RESP 16; TEMP 97.7; O2SAT 96
== END 2023-11-01 23:40 | disposition home or self-care (01) ==
LOC: ER 16:52
DX: N76.4 Abscess of vulva (principal); L02.212 Cutaneous abscess of back [any part, except buttock and flank]
CPT/HCPCS: 36415; 56405; 80053; 84145; 85025; 87070; 87077; 87186; 96365; 99284; A6407; J3490; 96366

== ENCOUNTER 2023-11-02 12:17 | Emergency (ER) | payer MEDICARE, MEDICAID ==
[~2023-11-02] VITALS: Ht 170.2 cm; Wt 118.0 kg
[~2023-11-02 12:17] MED LIST changes: +CLIN-97 PO
[2023-11-02 12:46] VITALS: BP 139/62; PULSE 76; RESP 16; TEMP 98.4; O2SAT 96
== END 2023-11-02 15:43 | disposition home or self-care (01) ==
LOC: ER 12:18
DX: N76.4 Abscess of vulva (principal); I11.0 Hypertensive heart disease with heart failure; E78.00 Pure hypercholesterolemia, unspecified; E11.9 Type 2 diabetes mellitus without complications; F41.9 Anxiety disorder, unspecified; E03.9 Hypothyroidism, unspecified
CPT/HCPCS: 99282

== ENCOUNTER 2024-03-15 17:00 | Emergency (ER) | payer MEDICARE, MEDICAID ==
[~2024-03-15] VITALS: Ht 167.6 cm; Wt 114.5 kg
[2024-03-15 17:24] LABS: BASOPHILS # (AUTO) 0.1 X10'3 (0-0.2); EOSINOPHILS # (AUTO) 0.2 X10'3 (0-0.9); EOSINOPHILS % (AUTO) 3.9 % (0-6); HEMOGLOBIN 15.5 g/dl (12.0-16.0); LYMPHOCYTES # (AUTO) 1.4 X10'3 (1.1-4.8); LYMPHOCYTES % (AUTO) 22.4 % (21-51); MEAN CORPUSCULAR HEMOGLOBIN 30.3 PG (27.0-31.0); MEAN CORPUSCULAR HGB CONC 32.9 g/dL (33.0-36.5); MEAN CORPUSCULAR VOLUME 92.1 FL (78-98); MEAN PLATELET VOLUME 8.5 FL (7.4-10.4); MONOCYTES # (AUTO) 0.5 X10'3 (0-0.9); MONOCYTES % (AUTO) 7.2 % (2-12); NEUTROPHILS # (AUTO) 4.1 X10'3 (1.8-7.7); NEUTROPHILS % (AUTO) 65.5 % (42-75); PLATELET COUNT 187 X10'3 (140-440); RED CELL DISTRIBUTION WIDTH 14.2 % (11.5-14.5); WHITE BLOOD COUNT 6.2 X10'3 (4.5-11.0)
[2024-03-15 17:53] LABS: ALBUMIN 3.8 G/DL (3.4-5.0); ANION GAP 7 (8-16); BLOOD UREA NITROGEN 16 MG/DL (7-18); BUN/CREATININE RATIO 18.8 (10.0-20.0); CALCIUM 9.4 MG/DL (8.5-10.1); CHLORIDE 101 MMOL/L (99-107); CREATININE 0.85 MG/DL (0.40-0.90); GLUCOSE 141 MG/DL (70-104); POTASSIUM 3.6 MMOL/L (3.5-5.1); PRO BRAIN NATRIURETIC PEPTIDE 141 PG/ML (0-125); SODIUM 138 MMOL/L (135-145); TOTAL CARBON DIOXIDE 29.8 MMOL/L (24-32); eCRCL 59 ML/MIN; eGFR 67 ML/MIN
[2024-03-15 21:08] VITALS: BP 149/69; PULSE 62; RESP 16; TEMP 98.1; O2SAT 98
== END 2024-03-15 20:35 | disposition home or self-care (01) ==
LOC: ER 17:01
DX: R42 Dizziness and giddiness (principal); I10 Essential (primary) hypertension; E78.00 Pure hypercholesterolemia, unspecified; E11.9 Type 2 diabetes mellitus without complications; F41.9 Anxiety disorder, unspecified; Z90.710 Acquired absence of both cervix and uterus; Z91.018 Allergy to other foods; Z88.2 Allergy status to sulfonamides; Z88.1 Allergy status to other antibiotic agents; Z88.0 Allergy status to penicillin; Z88.8 Allergy status to other drugs, medicaments and biological substances
CPT/HCPCS: 36415; 71045; 80048; 83880; 84484; 85025; 93005; 99285

== ENCOUNTER 2024-04-02 13:22 | Emergency (ER) | payer MEDICARE, MEDICAID ==
[~2024-04-02] VITALS: Ht 170.2 cm; Wt 117.3 kg
[2024-04-02 13:45] VITALS: TEMP 98.3
[2024-04-02 13:59] LABS: BASOPHILS % (AUTO) 0.8 % (0-1); EOSINOPHILS # (AUTO) 0.2 X10'3 (0-0.9); EOSINOPHILS % (AUTO) 3.8 % (0-6); HEMATOCRIT 49.2 % (35.0-45.0); HEMOGLOBIN 16.4 g/dl (12.0-16.0); LYMPHOCYTES # (AUTO) 1.6 X10'3 (1.1-4.8); MEAN CORPUSCULAR HEMOGLOBIN 30.7 PG (27.0-31.0); MEAN CORPUSCULAR HGB CONC 33.3 g/dL (33.0-36.5); MEAN CORPUSCULAR VOLUME 92.3 FL (78-98); MEAN PLATELET VOLUME 9.3 FL (7.4-10.4); MONOCYTES # (AUTO) 0.4 X10'3 (0-0.9); MONOCYTES % (AUTO) 6.7 % (2-12); NEUTROPHILS # (AUTO) 3.7 X10'3 (1.8-7.7); NEUTROPHILS % (AUTO) 62.7 % (42-75); PLATELET COUNT 174 X10'3 (140-440); RED BLOOD COUNT 5.33 X10'6 (4.20-5.60); RED CELL DISTRIBUTION WIDTH 14.4 % (11.5-14.5)
[2024-04-02 16:34] LABS: ALANINE AMINOTRANSFERASE 31 U/L (12-78); ALBUMIN 4.3 G/DL (3.4-5.0); ALBUMIN/GLOBULIN RATIO 1.2 (1.1-1.5); ALKALINE PHOSPHATASE 65 IU/L (46-116); ANION GAP 6 (8-16); ASPARTATE AMINO TRANSFERASE 18 U/L (10-37); BILIRUBIN,TOTAL 0.9 MG/DL (0.1-1.0); BLOOD UREA NITROGEN 16 MG/DL (7-18); BUN/CREATININE RATIO 19.3 (10.0-20.0); CALCIUM 9.7 MG/DL (8.5-10.1); CHLORIDE 103 MMOL/L (99-107); CREATININE 0.83 MG/DL (0.40-0.90); GLUCOSE 125 MG/DL (70-104); POTASSIUM 3.7 MMOL/L (3.5-5.1); SODIUM 141 MMOL/L (135-145); TOTAL CARBON DIOXIDE 31.9 MMOL/L (24-32); TOTAL PROTEIN 7.9 G/DL (6.4-8.2); eCRCL 63 ML/MIN; eGFR 68 ML/MIN
[2024-04-02 16:42] LABS: PRO BRAIN NATRIURETIC PEPTIDE 257 PG/ML (0-125)
[2024-04-02 18:01] VITALS: BP 132/67; PULSE 61; RESP 18; O2SAT 95
== END 2024-04-02 18:03 | disposition home or self-care (01) ==
LOC: ER 13:22
DX: R00.2 Palpitations (principal); E78.00 Pure hypercholesterolemia, unspecified; I10 Essential (primary) hypertension; E11.9 Type 2 diabetes mellitus without complications; Z88.0 Allergy status to penicillin; Z88.1 Allergy status to other antibiotic agents; Z88.2 Allergy status to sulfonamides; Z79.899 Other long term (current) drug therapy; Z79.82 Long term (current) use of aspirin; Z90.710 Acquired absence of both cervix and uterus
CPT/HCPCS: 36415; 71045; 80053; 83735; 83880; 84484; 85025; 93005; 99285; A6258

== ENCOUNTER 2024-06-09 14:49 | Emergency (ER) | payer MEDICARE, MEDICAID ==
[~2024-06-09] VITALS: Ht 167.6 cm; Wt 118.2 kg
[~2024-06-09 14:49] MED LIST changes: +ONDA-243 PO; -ONDA4TAB12 PO
[2024-06-09 15:44] LABS: BILIRUBIN,URINE NEGATIVE (Neg); CLARITY,URINE SLIGHTLY CLOUDY (Clear); COLOR,URINE YELLOW (Yellow); GLUCOSE, URINE >=1000 mg/dl (Neg); KETONES,URINE NEGATIVE (Neg); LEUKOCYTE ESTERASE ,URINE NEGATIVE (Neg); NITRITES, URINE NEGATIVE (Neg); OCCULT BLOOD,URINE TRACE-INTACT (Neg); PH,URINE 5.5 (4.8-8.0); PROTEIN,URINE 30 mg/dl (Neg); UROBILINOGEN,URINE 0.2 E.U/dL (0.2-1.0)
[2024-06-09 15:49] LABS: UA COLLECTION TYPE CLN CATCH MIDSTREAM
[2024-06-09 15:51] LABS: BACTERIA,URINE 1+ /HPF (Neg); RBC,URINE 0-2 /HPF (0-2); SQUAMOUS EPITHELIAL CELL,UR MANY /LPF (FEW); WBC,URINE 0-4 /HPF (0-4); YEAST FEW /HPF (NEGATIVE)
[2024-06-09] MEDS ORDERED: MICO45CR73 VG (20:12)
[2024-06-09] MEDS: fluconazole 100mg tablet PO ONE (20:27)
[2024-06-09 20:28] VITALS: BP 138/80; PULSE 78; RESP 16; TEMP 98.2; O2SAT 99
== END 2024-06-09 20:29 | disposition home or self-care (01) ==
LOC: ER 14:49
DX: B37.31 Acute candidiasis of vulva and vagina (principal); E78.00 Pure hypercholesterolemia, unspecified; I10 Essential (primary) hypertension; E11.9 Type 2 diabetes mellitus without complications; Z88.0 Allergy status to penicillin; Z88.1 Allergy status to other antibiotic agents; Z88.2 Allergy status to sulfonamides; Z79.82 Long term (current) use of aspirin; Z79.1 Long term (current) use of non-steroidal anti-inflammatories (NSAID); Z79.2 Long term (current) use of antibiotics; Z79.899 Other long term (current) drug therapy; Z90.710 Acquired absence of both cervix and uterus
CPT/HCPCS: 81001; 87081; 87210; 99283

== ENCOUNTER 2024-12-17 09:27 | Emergency (ER) | payer MEDICARE, MEDICAID ==
[~2024-12-17] VITALS: Ht 170.2 cm; Wt 115.8 kg
[~2024-12-17 09:27] MED LIST changes: +MICO45CR73 VG
[2024-12-17] MEDS: hydrALAZINE 20mg/ml inj. IV ONE (10:59)
[2024-12-17 11:52] LABS: BASOPHILS # (AUTO) 0.1 X10'3 (0-0.2); BASOPHILS % (AUTO) 1.4 % (0-1); EOSINOPHILS # (AUTO) 0.3 X10'3 (0-0.9); EOSINOPHILS % (AUTO) 7.4 % (0-6); HEMATOCRIT 48.4 % (35.0-45.0); HEMOGLOBIN 16.3 g/dl (12.0-16.0); LYMPHOCYTES # (AUTO) 1.2 X10'3 (1.1-4.8); LYMPHOCYTES % (AUTO) 26.2 % (21-51); MEAN CORPUSCULAR HEMOGLOBIN 30.8 PG (27.0-31.0); MEAN CORPUSCULAR HGB CONC 33.6 g/dL (33.0-36.5); MEAN CORPUSCULAR VOLUME 91.7 FL (78-98); MEAN PLATELET VOLUME 8.5 FL (7.4-10.4); MONOCYTES # (AUTO) 0.4 X10'3 (0-0.9); MONOCYTES % (AUTO) 9.1 % (2-12); NEUTROPHILS # (AUTO) 2.6 X10'3 (1.8-7.7); NEUTROPHILS % (AUTO) 55.9 % (42-75); PLATELET COUNT 181 X10'3 (140-440); RED BLOOD COUNT 5.27 X10'6 (4.20-5.60); RED CELL DISTRIBUTION WIDTH 14.3 % (11.5-14.5); WHITE BLOOD COUNT 4.6 X10'3 (4.5-11.0)
[2024-12-17 12:23] LABS: ANION GAP 10 (8-16); BLOOD UREA NITROGEN 19 MG/DL (7-18); BUN/CREATININE RATIO 22.9 (10.0-20.0); CALCIUM 10.1 MG/DL (8.5-10.1); CHLORIDE 104 MMOL/L (99-107); CREATININE 0.83 MG/DL (0.40-0.90); GLUCOSE 132 MG/DL (70-104); SODIUM 141 MMOL/L (135-145); TOTAL CARBON DIOXIDE 27.3 MMOL/L (24-32); eCRCL 62 ML/MIN; eGFR 68 ML/MIN
[2024-12-17 12:32] LABS: POTASSIUM 3.4 MMOL/L (3.5-5.1)
[2024-12-17] MEDS ORDERED: CLAR-45 PO (12:49)
[2024-12-17] MEDS ORDERED: CLOT15CR73 TOP (12:49)
[2024-12-17] MEDS ORDERED: CIPR10DR EACH EAR (13:09)
[2024-12-17 13:15] VITALS: BP 122/68; PULSE 61; RESP 16; TEMP 98; O2SAT 98
== END 2024-12-17 13:16 | disposition home or self-care (01) ==
LOC: ER 09:28
DX: H60.93 Unspecified otitis externa, bilateral (principal); L21.9 Seborrheic dermatitis, unspecified; R51.9 Headache, unspecified; R42 Dizziness and giddiness; I16.0 Hypertensive urgency; E11.9 Type 2 diabetes mellitus without complications; E78.00 Pure hypercholesterolemia, unspecified; I10 Essential (primary) hypertension; F41.9 Anxiety disorder, unspecified; Z87.442 Personal history of urinary calculi; Z88.0 Allergy status to penicillin; Z88.2 Allergy status to sulfonamides; Z88.1 Allergy status to other antibiotic agents; Z90.710 Acquired absence of both cervix and uterus; Z98.890 Other specified postprocedural states; Z79.82 Long term (current) use of aspirin
CPT/HCPCS: 36415; 70450; 80048; 84484; 85025; 93005; 96374; 99285; J0360

== ENCOUNTER 2025-03-28 09:33 | Day surgery (SDC) | payer MEDICARE, MEDICAID ==
[~2025-03-28] VITALS: Ht 170.2 cm; Wt 113.1 kg
[2025-03-28] VITALS (10 sets, daily range): BP systolic 136–179; BP diastolic 69–90; PULSE 57–68; RESP 14–16; TEMP 97.9; O2SAT 91–99
[~2025-03-28 09:33] MED LIST changes: -CLIN-97 PO; +CLOP-32 PO; +CYCL-1 PO; +FLUT16SP26 BOTHNARES; -IBUP-1986 PO; -METH-797 PO; +METO-411 PO; -MICO45CR73 VG; +NITR0.4T48 SL; -ONDA-243 PO; -PANT-47 PO
--- NOTE | 2025-03-28 10:19 | ELECTROCARDIOGRAPH REPORT ---
[facility] Test Date: 2025-03-28 Test Time: 10:17:11 Pat Name: SHANNAN MANUEL Department: [facility] Patient ID: [id number] Room: Gender: F Waitstaff Captain: : 1955 Requested By: ANGELA PAREDES Order Number: [id number] Reading MD: Dr. ANA MARIA Huitron Measurements Intervals [place] Rate: 62 P: 93 CA: 225 QRS: 32 QRSD: 97 T: 45 QT: 426 QTc: 433 Interpretive Statements Sinus rhythm Prolonged CA interval Probable anteroseptal infarct, old Electronically Signed On 03-28-2025 13:18:[address] ANA MARIA Huitron Please click the below link to view image of tracing.
[2025-03-28] MEDS ORDERED: CLOP75TA34 PO (10:20)
[2025-03-28] MEDS ORDERED: NITR0.4T51 SL (10:20)
[2025-03-28] MEDS ORDERED: LOSA1TAB41 PO (10:20)
[2025-03-28] MEDS ORDERED: METO50TA16 PO (10:20)
[2025-03-28] MEDS ORDERED: PANT40TA54 PO (10:20)
[2025-03-28] MEDS ORDERED: EMPA25TA PO (10:20)
[2025-03-28] MEDS ORDERED: CLOT15CR73 TOP (10:23)
[2025-03-28] MEDS ORDERED: LACT1TAB27 PO (10:27)
[2025-03-28 11:09] LABS: BASOPHILS % (AUTO) 0.9 % (0-1); EOSINOPHILS # (AUTO) 0.1 X10'3 (0-0.9); EOSINOPHILS % (AUTO) 2.3 % (0-6); HEMATOCRIT 49.8 % (35.0-45.0); HEMOGLOBIN 16.4 g/dl (12.0-16.0); LYMPHOCYTES # (AUTO) 1.4 X10'3 (1.1-4.8); LYMPHOCYTES % (AUTO) 28.5 % (21-51); MEAN CORPUSCULAR HEMOGLOBIN 29.8 PG (27.0-31.0); MEAN CORPUSCULAR HGB CONC 32.9 g/dL (33.0-36.5); MEAN CORPUSCULAR VOLUME 90.6 FL (78-98); MONOCYTES # (AUTO) 0.4 X10'3 (0-0.9); NEUTROPHILS % (AUTO) 60.3 % (42-75); PLATELET COUNT 209 X10'3 (140-440); RED CELL DISTRIBUTION WIDTH 14.1 % (11.5-14.5)
[2025-03-28 11:18] LABS: ALBUMIN 4.4 G/DL (3.4-5.0); ANION GAP 8 (8-16); BLOOD UREA NITROGEN 14 MG/DL (7-18); BUN/CREATININE RATIO 16.1 (10.0-20.0); CALCIUM 9.6 MG/DL (8.5-10.1); CHLORIDE 101 MMOL/L (99-107); CREATININE 0.87 MG/DL (0.40-0.90); GLUCOSE 118 MG/DL (70-104); MAGNESIUM 1.8 MG/DL (1.5-2.4); POTASSIUM 3.2 MMOL/L (3.5-5.1); SODIUM 140 MMOL/L (135-145); TOTAL CARBON DIOXIDE 30.8 MMOL/L (24-32); eCRCL 59 ML/MIN; eGFR 65 ML/MIN
[2025-03-28 11:21] LABS: PROTHROMBIN TIME 10.6 SECONDS (9.0-12.0)
[2025-03-28] MEDS: potassium Cl 20 mEq SR tablet PO STA (12:16)
[2025-03-28] MEDS: normal saline 1,000 ML IV SCH (12:17)
[2025-03-28] MEDS: sodium bicarbonate 1meq/ml syr 150 ML in dextrose 5%-water 1,000 ML IV ONE (12:18)
[2025-03-28] MEDS: diphenhydrAMINE 25mg capsule PO ONE (12:59)
[2025-03-28] MEDS ORDERED: LIDOcaine 1% (10mg/ml) 2ml vial ONE (13:15)
[2025-03-28] MEDS ORDERED: fentaNYL/PF 50MCG/1 ML 2ML syringe ONE (13:16)
[2025-03-28] MEDS ORDERED: iohexol 350MG/ML 100ml bottle IV ONE ×2 (13:16→14:24)
[2025-03-28] MEDS ORDERED: midazolam 1 mg/ML 2ml injection ONE ×3 (13:16→14:33)
[2025-03-28] MEDS ORDERED: verapamil 2.5 mg/ml inj IV ONE (13:16)
[2025-03-28] MEDS ORDERED: heparin 1,000unit/ml 10ml vial 10 ML ONE (13:16)
[2025-03-28] MEDS ORDERED: iohexol 350 MG/ML 50ML vial IV ONE (13:16)
[2025-03-28] MEDS ORDERED: nitroGLYCERIN 500mcg/5mL D5W 5 ML IV ONE (13:22)
[2025-03-28] MEDS ORDERED: clopidogrel 300mg tablet ONE (14:46)
[2025-03-28] MEDS ORDERED: proCHLORperazine 10 MG/2 ml inj ONE (14:51)
[2025-03-28] MEDS ORDERED: HYDROcodone/acetaminophen 5mg/325mg tablet PO PRN (15:30)
[2025-03-28] MEDS ORDERED: ondansetron/PF 4mg/2ml inj IV PRN (15:30)
[2025-03-28] MEDS ORDERED: proCHLORperazine 10 MG/2 ml inj IV PRN (15:30)
[2025-03-28] MEDS ORDERED: HYDROcodone/acetaminophen 10/325mg tab PO PRN (15:30)
[2025-03-28] MEDS: mag hydrox/Alum hydrox/simeth 30ml oral suspension PO ONE (15:31)
--- NOTE | 2025-03-28 16:47 | CARDIOLOGY REPORT ---
DATE OF SERVICE: 03/28/2025 DICTATING PHYSICIAN: ANGELA PAREDES DO CARDIAC CATHETERIZATION REPORT REFERRING PHYSICIAN: Gigi Salmeron MD CLINICAL HISTORY: This 69-year-old woman has recently had a non-Q wave myocardial infarction. She is thought to have multivessel coronary disease. PROCEDURES PERFORMED: * Left heart catheterization. * Left ventriculography. * Selective coronary arteriography. * PTCA/stent placement (RCA). * PTCA/stent placement (proximal circumflex coronary artery). * 45 minutes of conscious sedation and supervision. DESCRIPTION OF PROCEDURE: The patient was sedated with fentanyl and Versed. She was then prepared and draped in the usual manner. The right radial area was infiltrated with 1% lidocaine using a micropuncture set and a Seldinger technique. A 6-Tristanian sheath was placed in the radial artery. 5000 units of heparin were given in a peripheral IV. 200 mcg of nitroglycerin and 2.5 mg of verapamil were instilled directly into the radial artery. Left heart catheterization and left ventriculography were performed using a 6-Tristanian pigtail catheter. Coronary arteriography was performed using a 6-Tristanian Kimny catheter for the left coronary artery and a 6-Tristanian #4 right Jyoti catheter for the right coronary artery. PTCA/Stent placement: The patient was given an additional 5,00 units of heparin. The right coronary was engaged with a 6-Tristanian side-hole XBRCA guiding catheter. A Choice PT2 guidewire was passed down through the mainstem right coronary and positioned distally. A lesion in the mid right coronary was then directly stented using a 3 x 15 mm Akhil Bayfield drug-eluting stent. After deployment of the stent, testing demonstrated stability of the vessel. Final arteriography was then performed. The XBRCA catheter was removed and a 6-Tristanian 3.5 XBC guiding catheter was positioned in the left main coronary artery. The Choice PT2 wire was passed down through the circumflex, past the lesion in the proximal vessel. The tip of the wire was positioned distally. The lesion was then directly stented using a 3 x 15 mm Xience drug-eluting stent deployed at 15 atmospheres. After test injections demonstrated stability of the treated area, final arteriography was performed. RESULTS: HEMODYNAMIC DATA: The left ventricular end diastolic pressure was 27 mmHg. There was no gradient across the aortic valve. LEFT VENTRICULOGRAM: The left ventriculogram was technically satisfactory. The ejection fraction was approximately 70%. CORONARY ARTERIOGRAPHY: The coronary arteriograms were technically satisfactory. The patient had a right dominant system. LEFT MAIN CORONARY ARTERY: The left main was a large short vessel immediately trifurcating into left anterior descending, intermediate and circumflex coronary artery. LEFT ANTERIOR DESCENDING CORONARY ARTERY: The LAD was a medium to large transapical vessel. There were tiny diagonals proximally and in the distal vessel, and in the mid vessel, there was a small third diagonal. The distal mainstemLAD was narrowed by about 40%. INTERMEDIATE ARTERY: The intermediate was a large unobstructed vessel. CIRCUMFLEX CORONARY ARTERY: The circumflex was a large mainstem vessel. There was a small-caliber first obtuse marginal and a small to medium-sized posterolateral branch. Proximal to the takeoff of the obtuse marginal, there was a 75% stenosis in the mainstem circumflex coronary artery. RIGHT CORONARY ARTERY: The right coronary was a medium to large mainstem vessel. There was about a 60% stenosis in the mid vessel. The posterior descending branch was a medium to large vessel. There were 3 very small posterolateral branches. PTCA/STENT PLACEMENT: Following stenting of the mid right coronary, there was no significant residual stenosis and brisk runoff distally. Following stenting of the proximal circumflex coronary artery, there was no significant residual stenosis and brisk runoff distally. CONCLUSIONS: * Obstructive coronary artery disease manifested as follows: A. 75% proximal circumflex coronary artery. B. 60% mid right coronary. * Successful stenting of the circumflex and right coronary lesions. Following stent deployments, there was no significant residual stenosis and MORIAH flow in both areas was graded as 3, both before and after the intervention. * Left ventricular function was normal. The estimated ejection fraction was 70%. RECOMMENDATIONS: Ongoing medical therapy. ANGELA PAREDES DO TID: [id number] RECEIPT: [id number] ANNA MARIE GARCÍA
== END 2025-03-28 18:30 | disposition home or self-care (01) ==
LOC: SSTAY O 09:33
PROVIDERS: ATTEND Internal Medicine Cardiovascular Disease
DX: I25.10 Atherosclerotic heart disease of native coronary artery without angina pectoris (principal); I25.2 Old myocardial infarction; G47.33 Obstructive sleep apnea (adult) (pediatric); E78.5 Hyperlipidemia, unspecified; G47.30 Sleep apnea, unspecified; F41.9 Anxiety disorder, unspecified; F32.A Depression, unspecified; Z79.899 Other long term (current) drug therapy; Z98.890 Other specified postprocedural states
CPT/HCPCS: 36415; 80048; 82948; 83735; 85025; 85610; 93005; 93458; 99152; 99153; A4615; A6258; A6402; C1751; C1769; C1874; C1894; C9600; J0780; J1644; J2003; J2250; J3010; J3490; J7030; J7070; Q0163; Q9967; Z7610

== ENCOUNTER 2025-04-02 19:43 | Emergency (ER) | payer MEDICARE, MEDICAID ==
[~2025-04-02] VITALS: Ht 170.2 cm; Wt 95.8 kg
[~2025-04-02 19:43] MED LIST changes: -CLOP-32 PO; +CLOP75TA34 PO; +CLOT15CR73 TOP; +EMPA25TA PO; +LACT1TAB27 PO; -LOSA1TAB39 PO; +LOSA1TAB41 PO; -METO-384 PO; +METO50TA16 PO; -NITR0.4T48 SL; +NITR0.4T51 SL; -PANT40TA39 PO; +PANT40TA54 PO
--- NOTE | 2025-04-02 22:45 | Physician Documentation ---
History of Present Illness General Chief Complaint: Arm Pain Stated Complaint: ARM SWELLING Time Seen by MD: 21:13 Primary Medical Doctor: LD FRITZ History of Present Illness Initial Comments 69-year-old female who is status post cardiac stenting with access from the right distal volar radius. Endorses that she has been overusing the right upper extremity. Reports that she has some swelling and some tenderness and wonders she might have developed some phlebitis or blood clot. No fevers vomiting no restricted range of motion just tenderness and puffiness over the insertion site without bruising. Patient is on oral anticoagulation. Medication Reconciliation Allergies: Coded Allergies: Penicillins (Verified Allergy, Intermediate, 04/02/24) RASH/ ITCHING amoxicillin (Verified Allergy, Mild, 04/02/24) BURNING STOMACH, ITCHING cephalexin (Verified Allergy, Mild, 04/02/24) ITCHING/ RASH ampicillin (Verified Allergy, Unknown, 03/28/25) levofloxacin (Verified Adverse Reaction, Severe, 04/02/24) TENDONITIS/ RUPTURE Sulfa (Sulfonamide Antibiotics) (Verified Adverse Reaction, Mild, numb lips, 04/02/24) azithromycin (Verified Adverse Reaction, Mild, stomach ache, 04/02/24) ciprofloxacin (Unverified Adverse Reaction, Mild, stomach ache, 04/02/24) Uncoded Allergies: WALNUTS (Allergy, Mild, NUMBNESS, SOME SWELLING IN MOUTH, 03/11/11) Scheduled Aspirin (Aspirin), 81 MG PO DAILY, (Reported) Clopidogrel Bisulfate (Clopidogrel), 1 TAB PO DAILY, (Reported) Empagliflozin (Jardiance), 1 TAB PO DAILY, (Reported) Lactobacillus Acidophilus (Probiotic Acidophilus), 1 TAB PO DAILY, (Reported) Losartan/Hydrochlorothiazide (Losartan-Hctz 100-12.5 Mg Tab), 1 TAB PO DAILY, (Reported) Metoprolol Succinate (Metoprolol Succinate), 1 TAB PO HS, (Reported) Metoprolol Tartrate (Metoprolol Tartrate), 1 TAB PO DAILY, (Reported) Pantoprazole Sodium (Pantoprazole Sodium), 1 TAB PO DAILY, (Reported) Rosuvastatin Calcium* (Crestor*), 2 TAB PO DAILY, (Reported) Sitagliptin Phosphate* (Januvia*), 1 TAB PO DAILY, (Reported) Ubidecarenone (Coq-10), 300 MG PO DAILY, (Reported) Scheduled PRN Clotrimazole/Betamethasone Dip (Clotrimazole-Betamethasone Crm), 1 APPLIC TOP BID PRN for itching, (Reported) Cyclobenzaprine* (Cyclobenzaprine*), 1 TABLET PO Q8H PRN for muscle spasms, (Reported) Fluticasone Propionate (Fluticasone Propionate), 2 SPRAYS BOTHNARES DAILY PRN for allergies, (Reported) Lorazepam* (Ativan*), 1 TAB PO DAILY PRN for for anxiety/agitation, (Reported) Nitroglycerin SL* (Nitrostat SL*), 1 TAB SL Q5MIN PRN for Chest pain Q5min PRNx 3-call MD, (Reported) Discontinued Medications Clopidogrel Bisulfate (Plavix), 1 TAB PO DAILY Discontinued Reason: Other Metoprolol Succinate (Metoprolol Succinate), 1 TAB PO DAILY, (Reported) Discontinued Reason: Other Nitroglycerin (Nitroglycerin), 0.4 MG SL PRN Discontinued Reason: Other Pantoprazole Sodium* (Protonix*), 1 TAB PO QAM, (Reported) Discontinued Reason: Other Past Medical History Past Medical History: Arrhythmia, High Cholesterol, Hypertension, Peptic Ulcer Disease, Kidney Stones, UTI, Diabetes, Thyroid (unspecified), *MUSCULOSKELETAL*, Anxiety Past Surgical History: hysterectomy, orthopedic surgeries, other Other Past Family History: Mother: CHF, CVA. Aunt: 4 way bypass. Maternal Brother: 5 way bypass. Smoking: Non-Smoker Alcohol Use: None Drug Use: none Lives with: Family Lives In: Home Occupation: unemployed, disabled Review of Systems All Other Systems at this time: Reviewed and Negative Constitutional: Denies: fever, chills Musc: Reports: swelling; Denies: pain, joint pain, joint swelling Integ: Denies: rash Physical Exam Physical Exam Vital Signs: RN Vital Signs have been reviewed: Yes, Temperature: 97.2, Source: Temporal, Heart Rate: 70, Respiratory Rate: 12, BP: 173/77, Pulse Oximetry: 94, Weight: 95.750 General Appearance: alert, WD/WN, mild distress Head: normal inspection Face: normal inspection Pupils/EOM/Fundus: PERRLA Respiratory: no respiratory distress Extremities: normal range of motion Neurologic: oriented x4, industrial safety engineer II-XII nml as tested Motor / Sensory: no motor deficit, no sensory deficit, other (Mild fluctuance over the volar surface of the distal radius of approximately 1-2 cm. No bruising, no purpura, no bleeding, ulnar and radial pulses present.) Psychiatric: normal mood/affect Skin: normal color Progress Results/Orders Results/Orders Orders - YOKASTA WHITNEY PAC Vl Arterial (04/02/25 ) Vital Signs 04/02/25 19:54 Temp 97.2 Pulse 70 Resp 12 B/P (MAP) 173/77 Pulse Ox 94 Medical Decision Making Differential Diagnosis 69-year-old female who is status post cardiac stenting with access to the right distal radial artery. Vascular ultrasound performed at the bedside reassuring for no obstructed flow, aneurysm, stenosis or thrombosis. Patient was discharged with instructions to abstain from strenuous activity with the right upper extremity. Departure Disposition: 01 HOME / SELF CARE / HOMELESS Impression: Primary Impression: Status post cardiac catheterization Condition: Stable Referrals: NO PRIMARY CARE PROVIDER (PCP) Education Educated: Patient Educated regarding: diagnosis, treatment Signature Scribe Signature: , Attestation: CHELO THOMAS C PAC April 02, 2025 22:45
[2025-04-02 23:16] VITALS: BP 150/78; PULSE 84; RESP 16; TEMP 97.6; O2SAT 99
== END 2025-04-02 23:21 | disposition home or self-care (01) ==
LOC: ER 19:44
DX: Z98.61 Coronary angioplasty status (principal); I10 Essential (primary) hypertension; E78.00 Pure hypercholesterolemia, unspecified; E11.9 Type 2 diabetes mellitus without complications; F41.9 Anxiety disorder, unspecified; Z87.440 Personal history of urinary (tract) infections; Z88.0 Allergy status to penicillin; Z88.1 Allergy status to other antibiotic agents; Z88.3 Allergy status to other anti-infective agents; Z90.710 Acquired absence of both cervix and uterus; Z79.82 Long term (current) use of aspirin
CPT/HCPCS: 93931; 99284

== ENCOUNTER 2025-06-06 10:48 | Emergency (ER) | payer MEDICARE, MEDICAID ==
[~2025-06-06] VITALS: Ht 165.1 cm; Wt 115.0 kg
[2025-06-06 11:05] VITALS: BP 172/107; PULSE 67; RESP 18; TEMP 97.8; O2SAT 98
--- NOTE | 2025-06-06 11:13 | Physician Documentation ---
History of Present Illness ~ Chief Complaint: Flu Symptoms Stated Complaint: POSS COVID Time Seen by MD: 11:08 Primary Medical Doctor: LD FRITZ Source: patient, RN/ HPI Patient is seen today with complaints of having tested positive for COVID and states her symptoms started about a week ago. Patient denies any significant chest pain or shortness of breath or abdominal pain or nausea, vomiting, diarrhea. She states her symptoms actually getting a little better she was just concerned about what she should do and how she should proceed regarding quarantine. Patient has no other concern or complaint at this time. Medication Reconciliation Allergies: Coded Allergies: Penicillins (Verified Allergy, Intermediate, 04/02/24) RASH/ ITCHING amoxicillin (Verified Allergy, Mild, 04/02/24) BURNING STOMACH, ITCHING cephalexin (Verified Allergy, Mild, 04/02/24) ITCHING/ RASH ampicillin (Verified Allergy, Unknown, 03/28/25) levofloxacin (Verified Adverse Reaction, Severe, 04/02/24) TENDONITIS/ RUPTURE Sulfa (Sulfonamide Antibiotics) (Verified Adverse Reaction, Mild, numb lips, 04/02/24) azithromycin (Verified Adverse Reaction, Mild, stomach ache, 04/02/24) ciprofloxacin (Unverified Adverse Reaction, Mild, stomach ache, 04/02/24) Uncoded Allergies: WALNUTS (Allergy, Mild, NUMBNESS, SOME SWELLING IN MOUTH, 03/11/11) Scheduled Aspirin (Aspirin), 81 MG PO DAILY, (Reported) Clopidogrel Bisulfate (Clopidogrel), 1 TAB PO DAILY, (Reported) Empagliflozin (Jardiance), 1 TAB PO DAILY, (Reported) Lactobacillus Acidophilus (Probiotic Acidophilus), 1 TAB PO DAILY, (Reported) Losartan/Hydrochlorothiazide (Losartan-Hctz 100-12.5 Mg Tab), 1 TAB PO DAILY, (Reported) Metoprolol Succinate (Metoprolol Succinate), 1 TAB PO HS, (Reported) Metoprolol Tartrate (Metoprolol Tartrate), 1 TAB PO DAILY, (Reported) Pantoprazole Sodium (Pantoprazole Sodium), 1 TAB PO DAILY, (Reported) Rosuvastatin Calcium* (Crestor*), 2 TAB PO DAILY, (Reported) Sitagliptin Phosphate* (Januvia*), 1 TAB PO DAILY, (Reported) Ubidecarenone (Coq-10), 300 MG PO DAILY, (Reported) Scheduled PRN Clotrimazole/Betamethasone Dip (Clotrimazole-Betamethasone Crm), 1 APPLIC TOP BID PRN for itching, (Reported) Cyclobenzaprine* (Cyclobenzaprine*), 1 TABLET PO Q8H PRN for muscle spasms, (Reported) Fluticasone Propionate (Fluticasone Propionate), 2 SPRAYS BOTHNARES DAILY PRN for allergies, (Reported) Lorazepam* (Ativan*), 1 TAB PO DAILY PRN for for anxiety/agitation, (Reported) Nitroglycerin SL* (Nitrostat SL*), 1 TAB SL Q5MIN PRN for Chest pain Q5min PRNx3-call MD, (Reported) Past Medical History Past Medical History: Arrhythmia, High Cholesterol, Hypertension, Peptic Ulcer Disease, Kidney Stones, UTI, Diabetes, Thyroid (unspecified), *MUSCULOSKELETAL*, Anxiety Past Surgical History: hysterectomy, orthopedic surgeries, other Patient History: FH: CHF (congestive heart failure) MOTHER FH: HTN (hypertension) MOTHER FH: diabetes mellitus MOTHER Sister FH: heart attack Sister FH: hyperlipidemia MOTHER FH: kidney disease Sister FH: stroke Sister Other Past Family History: Mother: CHF, CVA. Aunt: 4 way bypass. Maternal Brother: 5 way bypass. Alcohol Use: None Drug Use: none Lives with: Family Lives In: Home Occupation: unemployed, disabled Review of Systems Constitutional: Denies: chills, fever, weakness Eyes: Denies: pain, blurred vision ENT: Denies: ear pain, nose pain, throat pain, mouth pain Respiratory: Denies: cough, shortness of breath Cardiovascular: Denies: chest pain, palpitations Gastrointestinal: Denies: abdominal pain, nausea, vomiting Genitourinary: Denies: burning, dysuria Female Genitalia: Denies: vaginal discharge, pelvic pain Neurological: Denies: headache, dizziness Musculoskeletal: Denies: pain, swelling Integumentary: Denies: rash, lesions Allergic/Immunologic: Denies: hives, itching Hematologic/Lymphatic: Denies: no symptoms reported Psychiatric: Denies: depression, anxiety Physical Exam Vital Signs: Temperature: 97.8, Source: Temporal, Heart Rate: 67, Respiratory Rate: 18, BP: 172/107, Pulse Oximetry: 98, Weight: 115.000 Physical Exam General: Awake and Alert, no acute distress. HEENT: Conjunctiva pink, Sclera clear, Mucus Membranes moist. Neck: Supple without masses and tenderness. Resp: Unlabored. Lungs clear to auscultation bilaterally. Heart: Regular Rate and rhythm, normal S1 and S2 without murmur, rub or gallop. Abdomen: Soft and non tender no organomegaly Extremities: No cyanosis,clubbing or edema. Skin: Warm and Dry. Progress Results/Orders Results/Orders Vital Signs 06/06/25 11:05 Temp 97.8 Pulse 67 Resp 18 B/P (MAP) 172/107 Pulse Ox 98 Medical Decision Making Findings Patient is seen today with complaints of having tested positive for COVID and states her symptoms started about a week ago. Patient denies any significant chest pain or shortness of breath or abdominal pain or nausea, vomiting, diarrhea. She states her symptoms actually getting a little better she was just concerned about what she should do and how she should proceed regarding quarantine. Patient has no other concern or complaint at this time. Patient will continue with conservative treatment with increase rest and fluids and will separate herself from her elder family member to prevent contamination or infection. Patient will follow up with primary care in 3-5 days if no better as needed sooner. Return to ED with any worsening, concerning or changing symptoms. Departure Disposition: 01 HOME / SELF CARE / HOMELESS Impression: Primary Impression: Viral URI with cough Additional Impression: Acute COVID-19 Condition: Improved Discharge Instructions: Viral Illness Additional Instructions: Patient will continue with conservative treatment with increase rest and fluids and will separate herself from her elder family member to prevent contamination or infection. Patient will follow up with primary care in 3-5 days if no better as needed sooner. Return to ED with any worsening, concerning or changing symptoms. Referrals: NO PRIMARY CARE PROVIDER (PCP) Signature Scribe Signature: No scribe Attestation: No scribe VIRGIE HUSTON Jun 06, 2025 11:13
== END 2025-06-06 11:23 | disposition home or self-care (01) ==
LOC: ER 10:49
DX: U07.1 COVID-19 (principal); E11.9 Type 2 diabetes mellitus without complications; E78.00 Pure hypercholesterolemia, unspecified; F41.9 Anxiety disorder, unspecified; I10 Essential (primary) hypertension; Z88.0 Allergy status to penicillin; Z88.1 Allergy status to other antibiotic agents; Z90.710 Acquired absence of both cervix and uterus; Z79.82 Long term (current) use of aspirin
CPT/HCPCS: 99282